=== PATIENT | male | born 1985 | race Caucasian/White ===

== ENCOUNTER → 2018-05-01 | Outpatient (CLI) | payer OTHER | END | disposition home or self-care (01) | LOC: LAB EV 15:54 → LAB SHORT 15:54 | DX: R07.0 Pain in throat (principal) | CPT/HCPCS: 87070 ==

== ENCOUNTER 2018-12-10 08:45 | Day surgery (SDC) | payer OTHER ==
[~2018-12-10] VITALS: Ht 177.8 cm; Wt 109.1 kg
[~2018-12-10 08:45] MED LIST: Ranitidine HCl150 M1 PO
--- NOTE | 2018-12-10 09:25 | NUR ---
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
== END 2018-12-10 10:15 | disposition home or self-care (01) ==
LOC: ORSCSDS 08:45
DX: R13.10 Dysphagia, unspecified (principal); Z53.9 Procedure and treatment not carried out, unspecified reason; K21.9 Gastro-esophageal reflux disease without esophagitis
CPT/HCPCS: J7120

== ENCOUNTER 2019-06-11 02:34 | Emergency (ER) | payer OTHER ==
[~2019-06-11] VITALS: Ht 180.3 cm; Wt 98.4 kg
[2019-06-11] MEDS ORDERED: HYDHCL25 PO (02:53)
[2019-06-11] MEDS ORDERED: Ciprodex Otic7.5 ML RIGHTEAR (05:41)
== END 2019-06-11 05:53 | disposition home or self-care (01) ==
LOC: ER 02:34
DX: H61.23 Impacted cerumen, bilateral (principal); F41.9 Anxiety disorder, unspecified; F17.200 Nicotine dependence, unspecified, uncomplicated; Z79.899 Other long term (current) drug therapy
CPT/HCPCS: 69210; 99282-25

== ENCOUNTER 2024-11-04 08:04 | Emergency (ER) | payer OTHER ==
[~2024-11-04] VITALS: Ht 175.3 cm; Wt 106.6 kg
[~2024-11-04 08:04] MED LIST changes: +Ciprodex Otic7.5 ML RIGHTEAR; +HYDHCL25 PO
[2024-11-04] MEDS ORDERED: Diflucan150 MG PO (09:49)
[2024-11-04] MEDS ORDERED: CLOTRIMAZOLE 321 GM TOP (09:49)
[2024-11-04 10:17] VITALS: BP 128/97
== END 2024-11-04 10:18 | disposition home or self-care (01) ==
LOC: ER 08:04
DX: N47.1 Phimosis (principal); B37.42 Candidal balanitis; Z79.899 Other long term (current) drug therapy; E11.9 Type 2 diabetes mellitus without complications; F17.200 Nicotine dependence, unspecified, uncomplicated
CPT/HCPCS: 99283

== ENCOUNTER → 2025-02-24 | Outpatient (CLI) | payer OTHER ==
[~2025-02-24] MED LIST changes: +CLOTRIMAZOLE 321 GM TOP; +Diflucan150 MG PO
[2025-02-25 19:21] LABS: Microalb/Creat Ratio UR, Rand 83.03 mg/g (0.000-30.000)
== END ==
LOC: LAB SHORT 16:00 → LAB 16:00
PROVIDERS: Physician Assistant
DX: E11.65 Type 2 diabetes mellitus with hyperglycemia (principal); Z79.4 Long term (current) use of insulin
CPT/HCPCS: 82043; 82570